=== PATIENT | female | born 1990 | race Hispanic/Latino ===

== ENCOUNTER 2022-12-13 04:24 | Emergency (ER) | payer OTHER | END 2022-12-13 05:45 | disposition home or self-care (01) | LOC: CSHERS 04:24 | DX: R04.0 Epistaxis (principal) | CPT/HCPCS: 99283 ==

== ENCOUNTER 2023-10-05 06:46 | Emergency (ER) | payer MEDICAID, OTHER, SELFPAY ==
[2023-10-05] MEDS ORDERED: Oxymetazoline HCl 0.05% ( 15 ML ) ONE (07:24)
== END 2023-10-05 08:09 | disposition home or self-care (01) ==
LOC: CSHERS 06:46
DX: R04.0 Epistaxis (principal)
CPT/HCPCS: 99283